=== PATIENT | female | born 1960 | race Hispanic/Latino ===

== ENCOUNTER 2019-05-23 14:18 | Outpatient (CLI) | payer OTHER ==
--- NOTE | 2019-05-23 15:29 | MMO ---
Bilateral MAMMO Bilat Screen DDI. CLINICAL HISTORY: Patient is 58 years old and is seen for screening. The patient has the following family history of breast cancer: sister, at age 50. The patient has no personal history of cancer. The patient has a history of left Excisional Biopsy at age 18 - benign. VIEWS: The views performed were: bilateral craniocaudal and bilateral mediolateral oblique. FILMS COMPARED: The present examination has been compared to prior imaging studies performed at [facility] on 10/20/2009, 03/27/2015, 05/28/2015 and 07/27/2016. This study has been interpreted with the assistance of computer-aided detection. MAMMOGRAM FINDINGS: The breasts are heterogeneously dense, which could obscure a lesion on mammography. New nodule inner left breast. New densities mid right breast on cc view marked on film. Recommend bilateral diagnostic exam. IMPRESSION: FINDINGS IN BOTH BREASTS REQUIRE ADDITIONAL EVALUATION. ADDITIONAL IMAGING. ACR BI-RADS Category 0 - Incomplete: Need additional imaging evaluation. [facility] will notify the patient of the need for additional imaging services. MAMMOGRAPHY NOTE: 1. A negative mammogram report should not delay a biopsy if a dominant of clinically suspicious mass is present. 2. Approximately 10% to 15% of breast cancers are not detected by mammography. 3. Adenosis and dense breasts may obscure an underlying neoplasm. Reported by: HERNAN GARNER MD Electonically Signed: [id number]
== END 2019-05-23 14:19 | disposition home or self-care (01) ==
LOC: SCSMAMMO 14:18
PROVIDERS: ATTEND Nurse Practitioner Family
DX: Z12.31 Encounter for screening mammogram for malignant neoplasm of breast (principal); Z80.3 Family history of malignant neoplasm of breast; Z91.89 Other specified personal risk factors, not elsewhere classified
CPT/HCPCS: 77067